=== PATIENT | male | born 1955 | race Two or more races ===

== ENCOUNTER → 2017-07-14 | Outpatient (CLI) | payer SELFPAY ==
--- NOTE | 2017-07-15 17:09 | RAD ---
Bilateral feet, 6 views,, 07/14/2017: History: Foot pain No fracture or dislocation is identified. There are mild degenerative changes at the midfoot level bilaterally. No bone erosions are seen. There is mild subcutaneous edema. IMPRESSION: 1. Mild degenerative changes. 2. No acute bony abnormality is detected.
== END | disposition home or self-care (01) ==
LOC: RAD 17:27
PROVIDERS: ATTEND Physician Assistant Medical
DX: M19.072 Primary osteoarthritis, left ankle and foot (principal); M19.071 Primary osteoarthritis, right ankle and foot
CPT/HCPCS: 73630

== ENCOUNTER 2019-11-26 16:08 | Emergency (ER) | payer OTHER ==
[2019-11-26 16:40] VITALS: BP 133/55
[2019-11-26] MEDS ORDERED: GUAI120L35 PO (17:09)
[2019-11-26] MEDS ORDERED: TRIA10.8 NS (17:09)
[2019-11-26] MEDS ORDERED: AMOX1TAB61 PO (17:09)
--- NOTE | 2019-11-26 17:09 | PHYS DOC ---
Adult General Chief Complaint Chief Complaint: FLU SYMPTOM HPI HPI Patient is a 64-year-old male who presents with complaint of symptoms of upper respiratory infection for over a week now. Patient states that he has had cough is been productive of yellow sputum. Patient also indicates that he has had pur ulent nasal drainage and pain in his right eye. He states that nothing is improving his symptoms..[] Review of Systems Review of Systems Constitutional: Denies fever or chills [] Respiratory: Positive productive cough without shortness of breath [] Cardiovascular: No additional information not addressed in HPI [] GI: Denies abdominal pain, nausea, vomiting or diarrhea [] Integument: Denies rash or skin lesions [] Neurologic: Complains of headache without focal weakness or sensory changes [] All other systems were reviewed and found to be within normal limits, except as documented in this note. Physical Exam Physical Exam Constitutional: Well developed, well nourished, no acute distress, non-toxic appearance. [] HENT: Normocephalic, atraumatic, with tenderness particularly overlying right maxillary sinus, oropharynx moist, no oral exudates, nose normal. [] Cardiovascular:Heart rate regular rhythm, no murmur [] Lungs & Thorax: Bilateral breath sounds clear to auscultation [] Extremities: No tenderness, no cyanosis, no clubbing, ROM intact, no edema. [] Neurologic: Alert and oriented X 3, no focal deficits noted. [] EKG EKG [] Radiology/Procedures Radiology/Procedures [] Course & Med Decision Making Course & Med Decision Making Pertinent Labs and Imaging studies reviewed. (See chart for details) [] Dragon Disclaimer Dragon Disclaimer This electronic medical record was generated, in whole or in part, using a voice recognition dictation system. Departure Departure Impression: Primary Impression: Acute sinusitis Disposition: 01 HOME, SELF-CARE Condition: STABLE Referrals: KADY ESPINOZA JR, MD (PCP) Patient Instructions: Sinusitis Scripts Triamcinolone Acetonide (NASACORT) 10.8 Ml [place] 2 SPRAY NS QHS, #10.8 ML 0 Refills Prov: JENNIFER GRACE Jr. DO 11/26/19 Guaifenesin/Codeine Phosphate (Codeine-Guaifen 10-100 mg/5 ml) 120 Ml Liquid 5 ML PO PRN Q6HRS PRN for cough and congestion MDD 20 Milliliter(s) for 6 Days, #120 ML 0 Refills Prov: JENNIFER GRACE Jr. DO 11/26/19 Amoxicillin/Potassium Clav (AUGMENTIN 875-125 TABLET) 1 Each Tablet 1 TAB PO BID for 10 Days, #20 TAB 0 Refills Prov: JENNIFER GRACE Jr. DO 11/26/19 Problem Qualifiers Primary Impression: Acute sinusitis Sinusitis location: maxillary Recurrence: non-recurrent Qualified Codes: J01.00 - Acute maxillary sinusitis, unspecified JENNIFER GRACE Jr. DO Nov 26, 2019 17:09
== END 2019-11-26 17:18 | disposition home or self-care (01) ==
LOC: ER 16:08
DX: J01.00 Acute maxillary sinusitis, unspecified (principal); H57.11 Ocular pain, right eye; R05 Cough
CPT/HCPCS: 99283

== ENCOUNTER → 2022-02-24 | Outpatient (CLI) | payer OTHER ==
[~2022-02-24] MED LIST: AMOX1TAB61 PO; GUAI120L35 PO; TRIA10.8 NS
--- NOTE | 2022-02-24 15:43 | KCIC ---
EXAM: XR CHEST 2V 02/24/2022 1:00 PM CLINICAL INDICATION: Hypertension, chest pain, shortness of air, wheezing COMPARISON: None TECHNIQUE: PA and lateral views of the chest FINDINGS: The heart is at the upper limit of normal in size. The lungs are mildly hypoexpanded. No c onsolidation, pleural effusion, or pneumothorax. No acute osseous abnormality. IMPRESSION: No acute cardiopulmonary abnormality. Electronically signed by: Blessing Koehler MD (02/24/2022 3:40 PM) [id number]
== END ==
LOC: KCIC 12:48
PROVIDERS: ATTEND Family Medicine
DX: I10 Essential (primary) hypertension (principal)
CPT/HCPCS: 71046